=== PATIENT | male | born 1950 | race Hispanic/Latino ===

== ENCOUNTER 2018-09-30 11:58 | Emergency (ER) | payer MEDICARE ==
--- NOTE | 2018-09-30 12:39 | RAD ---
Exam: Lumbar spine 3 views HISTORY: Low back pain. COMPARISON: None FINDINGS: 5 lumbar type bodies. Vertebral body height is maintained. No fracture. No spondylolisthesi s or spondylolysis. Straightening of normal lumbar lordosis likely due to patient position or muscle. Vacuum disc phenomenon at L5-S1 IMPRESSION: Vacuum disc phenomenon at L5-S1. Nonemergent MRI of the lumbar spine is recommended
[2018-09-30] MEDS ORDERED: Dexamethasone 4 mg/ml Vial ONE (13:06)
[2018-09-30] MEDS ORDERED: Ketorolac Tromethamine 60 MG/2 ML VIAL ONE (13:06)
[2018-09-30] MEDS ORDERED: diphenhydrAMINE 25 MG CAP ONE (13:12)
== END 2018-09-30 14:04 | disposition home or self-care (01) ==
LOC: ERS 11:58
DX: M54.5 Low back pain (principal); I10 Essential (primary) hypertension
CPT/HCPCS: 72100; 96372; J1100; J1885; Q0163

== ENCOUNTER 2018-10-11 04:18 | Inpatient (IN) | payer MEDICARE ==
[2018-10-11] MEDS ORDERED: Morphine 4 MG/ML VIAL ONE (05:20)
[2018-10-11] MEDS ORDERED: Ondansetron PF 4 MG/2 ML Vial ONE (05:20)
[2018-10-11] MEDS ORDERED: Aspirin 325 MG TAB ONE (06:34)
[2018-10-11] MEDS ORDERED: Fentanyl 100 MCG/2 ML VIAL ONE ×2 (06:34→10:10)
[2018-10-11] MEDS ORDERED: Ondansetron ODT 4 MG TAB PO PRN (08:09)
[2018-10-11] MEDS ORDERED: Acetaminophen 325 MG TAB PO PRN (08:09)
[2018-10-11] MEDS ORDERED: Insulin Regular 300 UNITS/3 ML VIAL SC PRN (08:09)
[2018-10-11] MEDS ORDERED: Dextrose 5% in Water 1,000 ML IV PRN (08:09)
[2018-10-11] MEDS ORDERED: Acetaminophen 650 MG Suppository PR PRN (08:09)
[2018-10-11] MEDS ORDERED: Dextrose 50% Abboject 50 ML SYRINGE SLOW IVP PRN (08:09)
[2018-10-11] MEDS ORDERED: Senokot S 8.6-50 MG TAB PO PRN (08:09)
--- NOTE | 2018-10-11 08:20 | ULT ---
GALLBLADDER ULTRASOUND: CLINICAL INDICATION: Epigastric pain with nausea and vomiting new onset. FINDINGS: There is prominence of the hepatic volume, greater than 20 cm in length with increased echogenicity. There is thickening of the gallbladder wall with evidence of pericholecystic fluid. No shadowing ch olelithiasis. The bun panner does report a positive Ha's sign. Hypoechoic focus of the central aspect of the right kidney is present which may relate to a parapelvic cyst. The common duct is sharad sured at 4-5 mm, where visualized. IMPRESSION: Sonographic findings of cholecystitis. There is no shadowing cholelithiasis visualized. The common duct is normal in size. Recommend clinical correlation. POS: MADELIN
[2018-10-11 08:41] LABS: ALT (SGPT) 85 U/L (8-55); AST (SGOT) 171 U/L (5-34); Albumin 3.5 g/dL (3.4-4.8); Alkaline Phosphatase 135 U/L (40-150); Anion Gap 12 mmol/L (10-20); BUN (Urea Nitrogen) 13 mg/dL (8.4-25.7); Bilirubin, Total 1.2 mg/dL (0.2-1.2); Calc. Creatinine Clearance 0 mL/min (70-130); Calcium 8.5 mg/dL (7.8-10.44); Carbon Dioxide 26 mmol/L (23-31); Chloride 100 mmol/L (98-107); Estimated GFR-MDRD 69; Glucose 388 mg/dL (80-115); Potassium 4.4 mmol/L (3.5-5.1); Protein, Total 6.5 g/dL (5.8-8.1); Sodium 134 mmol/L (136-145); Triglycerides 352 mg/dL (Less than 150)
[2018-10-11 08:45] LABS: Troponin I Less than 0.010 ng/mL (< 0.028)
[2018-10-11 08:54] LABS: Lipase 2823 U/L (8-78)
[2018-10-11] MEDS ORDERED: Fentanyl 100 MCG/2 ML VIAL SLOW IVP PRN (08:55)
[2018-10-11] MEDS ORDERED: Famotidine 20 MG TAB PO SCH (09:00)
[2018-10-11] MEDS ORDERED: Famotidine/PF 20 mg/2ml Vial SLOW IVP SCH (09:00)
[2018-10-11] MEDS ORDERED: Nitroglycerin 0.4 MG TAB (25 Tab Bottle) PO PRN (09:07)
[2018-10-11] MEDS ORDERED: Famotidine/PF 20 mg/2ml Vial ONE (10:42)
[2018-10-11] MEDS ORDERED: Famotidine 20 MG TAB ONE (10:42)
[2018-10-11] MEDS ORDERED: NPH, Human Insulin Isophane 300 UNIT/3 ML VIAL SC SCH (10:45)
[2018-10-11] MEDS ORDERED: Pantoprazole 40 MG VIAL IVP SCH (10:45)
--- NOTE | 2018-10-11 11:08 | HP ---
PRIMARY CARE PHYSICIAN: None. CHIEF COMPLAINT: Abdominal discomfort. HISTORY OF PRESENT ILLNESS: The patient is a 68-year-old male with no past medical history, presented to [facility] with sudden onset of epigastric discomfort. The pain started around 1 a.m. and was [id number] in intensity. It was constant with waxing and waning. He was diaphoretic along with shortness of breath. The pain was 8 to 10/10. He denies any palpitations, syncope, recent immobilization, or travel. He has not seen a physician for many years. In the emergency room, his initial vital signs showed temperature 98.3, respirations of 17, pulse rate of 88, blood pressure of 156/99 with O2 saturation 96% on room air. His lipase was 3218 with AST of 62, total bilirubin 1.0, alkaline phosphatase 137. He received 12 units of subcu Humulin R, 1 L IV fluid, 325 mg aspirin, and Maalox, and was transferred to this facility. PAST MEDICAL HISTORY: Reviewed with the patient and none. PAST SURGICAL HISTORY: Reviewed with the patient and none. ALLERGIES: THE PATIENT IS ALLERGIC TO IBUPROFEN THAT CAUSES ANAPHYLAXIS. SOCIAL HISTORY: The patient works in [employer]. He denies current use of smoking, alcohol, or drug use. He is a former smoker. FAMILY HISTORY: Positive for diabetes. REVIEW OF SYSTEMS: All other review of systems was reviewed and were found negative. Please note that history was obtained with the help of a roving can tender. The patient is primarily Turkmen-speaking only. OBJECTIVE: VITAL SIGNS: As discussed above. GENERAL: A 68-year-old male in mild distress due to significant abdominal pain. HEENT: Head, atraumatic and normocephalic. Sclerae anicteric. Moist mucous membrane. No oral lesion. NECK: Supple. No JVD appreciated. No carotid bruit. LUNGS: Clear to auscultation bilaterally with diminished air entry at bilateral bases. HEART: S1 and S2 present. Regular rate and rhythm. No rubs or gallops appreciated. ABDOMEN: Soft. There is significant tenderness in the epigastric region in the right upper quadrant. No rebound or guarding. No costovertebral angle tenderness. Bowel sounds are present. EXTREMITIES: No edema or calf tenderness. NEUROLOGIC: Grossly nonfocal. Moves all 4 extremities. PSYCHIATRIC: Normal affect. Alert, awake, and oriented x3. LABORATORY FINDINGS: Repeat lipase was 2823 with amylase of 107.5, triglycerides 352, AST of 171, ALT of 85, total bilirubin of 1.2. Hemoglobin A1c 13, BUN 13, creatinine 1.07. IMAGING STUDIES: Chest x-ray by my review was negative for infiltrate. Abdominal ultrasound showed common bile duct measuring 4 to 5 mm with thickening of the gallbladder wall with evidence of pericholecystic fluid. EKG by my review showed sinus rhythm with premature ventricular complex. IMPRESSION: 1. Acute pancreatitis of unclear etiology. 2. Gallbladder thickening, probably secondary to #1, questionable acute cholecystitis. 3. New-onset diabetes mellitus type 2. 4. Morbid obesity. 5. Chronic kidney disease stage 2. 6. Hyponatremia secondary to hyperglycemia. PLAN: The patient will be monitored on the medical floor. His troponins have been negative. An echocardiogram will be obtained for surgical clearance. The patient is physically active. Denies any shortness of breath on moderate exertion. He will be kept n.p.o. Empiric antibiotics will be added. IV fluids. We will start him on NPH 10 units b.i.d. with moderate sliding scale. IV narcotics for pain control. I discussed the case with Gastroenterology and General surgery on-call. Dietitian will be consulted. Walking program. DVT prophylaxis with Lovenox. Plan of care was discussed with the patient and the family in detail. They stated understanding. We will check lipase, amylase, as well as LFTs in a.m. Job ID: [id number]
[2018-10-11] MEDS: Sodium Chloride 0.9% 1,000 ML IV SCH ×3 (11:21→20:18)
[2018-10-11] MEDS: Piperacillin/Tazobactam 3.375 GM in Sodium Chloride 0.9% 100 ML IVPB SCH ×2 (11:21→17:10)
[2018-10-11] MEDS ORDERED: traMADol HCl 50 MG TAB PO PRN (11:27)
[2018-10-11 11:42] VITALS: BMI 39.5
[2018-10-11] MEDS ORDERED: Pantoprazole 40 MG VIAL ONE (11:47)
[2018-10-11] MEDS ORDERED: Fentanyl 100 MCG/2 ML VIAL SLOW IVP SCH (12:30)
[2018-10-11] MEDS ORDERED: Prevnar 13-Val Conj/PF 0.5 ML SYRINGE IM ONE (14:45)
[2018-10-11] MEDS ORDERED: hydrALAZINE 20 MG/ML VIAL SLOW IVP PRN (15:26)
--- NOTE | 2018-10-11 16:17 | CON ---
DATE OF CONSULTATION: 10/11/2018 REQUESTING PHYSICIAN: Dr. Cholo Wilkerson. HISTORY OF PRESENT ILLNESS: This is a 68-year-old man, who presented to the emergency department today. The patient reported insidious onset epigastric abdominal pain, which started approximately 0100 hours, for which the patient was seen in an emergency department. He was transferred to [facility] for upper level workup and care of pancreatitis. The patient is awake and alert at the time of my evaluation. He reports onset of 9/10 abdominal pain, which he described as sharp without any radiation. He had diarrhea 2 days ago. Currently, he denies any abdominal distention or flatulence. He denies any fevers or chills. He denies any hematochezia or melena. The patient reports no prior abdominal pain as far as he can remember. PAST MEDICAL HISTORY: He denies any previous medical problems as he has not been seeing any physicians. SURGICAL HISTORY: The patient has had no previous surgeries. SOCIAL HISTORY: He is employed in building maintenance. He denies any cigarette smoking or illicit drug abuse. He, however, admits to very rare occasions of ethanol intake in moderate amounts. He has not had any alcohol over 2 weeks. FAMILY HISTORY: Noncontributory for this patient's age. PREHOSPITALIZATION MEDICATIONS: None. ALLERGIES: TO IBUPROFEN. REVIEW OF SYSTEMS: A 10-point review of systems essentially unremarkable except as stated in past medical history and chief complaint. PHYSICAL EXAMINATION: GENERAL: A 68-year-old normally developed man, who is otherwise coherent and interactive and appears stated age. The patient is alert and oriented x3. Appears to be in no acute distress at the time of my evaluation. VITAL SIGNS: Blood pressure 156/98, pulse is 81, respiratory rate is 18, temperature 98.4 degrees Fahrenheit, and oxygen saturation is 93% on room air. HEENT: Normocephalic and atraumatic. Pupils are equal, round, and reactive to light and accommodation. Extraocular muscles are intact bilaterally. No scleral icterus present. HEART: Regular rate and rhythm. No murmurs or gallops auscultated. LUNGS: Clear to auscultation bilaterally. Breathing regular and nonlabored. ABDOMEN: Soft and moderately distended. He has epigastric abdominal tenderness to palpation. He has no rebound tenderness present. Liver and spleen are nonpalpable below costal margins. EXTREMITIES: 2+ radial and pedal pulses bilaterally. No ankle edema is present. NEUROLOGIC: No focal deficits present. LABORATORY FINDINGS: Today include CBC with 8900 white blood cells, hemoglobin and hematocrit 15.1 and 44.1 respectively, and platelet count is 192,000. Metabolic profile; sodium 134, potassium 4.4, chloride is 100, bicarb is 26, BUN 13, creatinine is 1.07, and glucose is 388. Hemoglobin A1c is 13%. Total bilirubin is 1.2, AST and ALT are 171 and 85 respectively, and alkaline phosphatase is also normal at 135 international units/L. Serum lipase is elevated at 2823. I have personally reviewed the abdominal ultrasound, which was obtained this morning, and this is significant for a distended gallbladder with gallbladder wall thickening and pericholecystic fluid present. I do not see any intraluminal gallstones. Common bile duct is normal in diameter for this patient's age at 5 mm. IMPRESSIONS: 1. Acute cholecystitis. 2. Acute pancreatitis in the absence of alcoholism. This is likely to be gallstone pancreatitis. 3. New onset type 2 diabetes mellitus. RECOMMENDATIONS: 1. Bowel rest and IV hydration with appropriate antibiotic therapy. There is no acute surgical indication for this patient at this time. 2. We will continue with serial physical examination and consider laparoscopic cholecystectomy once the pancreatitis has resolved. 3. Above findings and recommendation has been discussed with the patient and his family at bedside. 4. I have also advised the patient of the risks and benefits of surgery should be undertaken. 5. Surgical risks include, but not limited to, bleeding, infection, injury to bile duct or surrounding structures. 6. The patient and his family have indicated their understanding information provided. 7. Answered their questions. Thank you again, Dr. Wilkerson, for allowing me the opportunity to participate in the care of this patient. Job ID: [id number]
[2018-10-11] MEDS: Insulin Regular 300 UNITS/3 ML VIAL SC PRN ×2 (17:25→20:50)
[2018-10-11] MEDS: Metoprolol Tartrate 25 MG TAB PO SCH (19:50)
[2018-10-11] MEDS: Enoxaparin Sodium 40 MG/0.4 ML SYRINGE SC SCH (19:51)
[2018-10-11] MEDS: NPH, Human Insulin Isophane 300 UNIT/3 ML VIAL SC SCH (20:51)
[2018-10-12] MEDS: Sodium Chloride 0.9% 1,000 ML IV SCH ×3 (03:48→17:37)
[2018-10-12] MEDS: Piperacillin/Tazobactam 3.375 GM in Sodium Chloride 0.9% 100 ML IVPB SCH ×5 (03:48→21:22)
[2018-10-12 06:16] LABS: #Eosinphils 0.1 thou/uL (0.0-0.7); #Lymphocytes 1.6 thou/uL (1.20-3.40); #Monocytes 0.7 thou/uL (0.11-0.59); #Neutrophils 9.4 thou/uL (1.40-6.50); %Basophils 0.3 % (0.0-1.0); %Eosinophils 0.6 % (0.0-10.0); %Lymphocytes 13.4 % (21.0-51.0); %Neutrophils 79.7 % (42.0-75.0); Hemoglobin 14.4 g/dL (14.0-18.0); Mean Corpuscular HGB CONC 32.2 g/dL (32.0-36.0); Mean Corpuscular Volume 93.2 fL (78.0-98.0); Mean Platelet Volume 9.4 fL (7.4-10.4); Platelet Count 166 thou/uL (130-400); RBC Distribution Width 11.4 % (11.5-14.5); Red Blood Cell (RBC) Count 4.79 mill/uL (4.70-6.10); White Blood Cell (WBC) Count 11.8 thou/uL (4.8-10.8)
[2018-10-12 06:37] LABS: Phosphorus 2.7 mg/dL (2.3-4.7)
[2018-10-12 06:42] LABS: ALT (SGPT) 94 U/L (8-55); AST (SGOT) 65 U/L (5-34); Albumin 3.1 g/dL (3.4-4.8); Alkaline Phosphatase 135 U/L (40-150); Anion Gap 7 mmol/L (10-20); BUN (Urea Nitrogen) 11 mg/dL (8.4-25.7); Bilirubin, Total 1.3 mg/dL (0.2-1.2); Calc. Creatinine Clearance 112 mL/min (70-130); Calcium 8.6 mg/dL (7.8-10.44); Carbon Dioxide 31 mmol/L (23-31); Chloride 105 mmol/L (98-107); Estimated GFR-MDRD 70; Glucose 243 mg/dL (80-115); Lipase 630 U/L (8-78); Magnesium 1.6 mg/dL (1.6-2.6); Potassium 4.3 mmol/L (3.5-5.1); Protein, Total 6.1 g/dL (5.8-8.1); Sodium 139 mmol/L (136-145)
[2018-10-12] MEDS ORDERED: Morphine 2 MG/ML SYRINGE SLOW IVP PRN (08:08)
[2018-10-12] MEDS: Metoprolol Tartrate 25 MG TAB PO SCH ×2 (08:37→21:23)
[2018-10-12] MEDS: NPH, Human Insulin Isophane 300 UNIT/3 ML VIAL SC SCH ×2 (08:39→21:37)
--- NOTE | 2018-10-12 08:43 | CON ---
DATE OF CONSULTATION: 10/11/2018 REASON FOR CONSULTATION: Abdominal pain, nausea, vomiting and evidence of acute pancreatitis. HISTORY OF PRESENT ILLNESS: Mr. Scott Duran is a very pleasant 68-year-old Latin-Ivorian male, hospitalized with abdominal pain, nausea, and vomiting. The patient was seen in the hospital with his over the weekend and his actually got discharged yesterday. His has heart failure, chronic kidney disease, etc. She was sent home actually yesterday from the hospital. The patient never had any medical problems. He had not seen a doctor for many years. He came to the ER a week ago because of arthritis and was seen in the ER. Prescription was given for some pain medication. The patient does not drink any alcohol except once in a while. He had a beer on October 05. He drinks maybe one or two beers occasionally. He developed severe abdominal pain with nausea and vomiting. The pain was over the epigastric area and going to the back. He also had nausea and vomiting. No fever or chills. No similar episodes in the past. The patient came to the ER and was found to have evidence of pancreatitis and hospitalized. Serum lipase was around 3100. Liver function tests are normal. Abdominal sonogram shows no gallstones, but there is evidence of cholecystitis. The common bile duct is normal. Also the liver function tests are normal. At the present time, he is n.p.o. and is on IV pain medications and also IV fluids. The patient does not speak any Malaysian and his sister was in the room and she was able to talk to him and gives most of the history. There is no other relevant history. ALLERGIES: NONE. SOCIAL HISTORY: The patient is . Does not smoke, but drinks beer once in a while. Drank one beer on October 05. MEDICAL ILLNESSES: No major medical illness except pain in the knee joints. SURGERIES: None. FAMILY HISTORY: Family history of diabetes and also sister had gallstones. No family history of cancer. MEDICATIONS AT HOME: None. SYSTEM REVIEW: HEAD: No chronic headache. No dizziness. EYES: No diplopia. No impaired vision. EARS: No ear pain. No ear discharge. NOSE: No nose bleeding. THROAT: No sore throat or any dysphagia. NECK: No neck stiffness or pain. No limitation of movement. LUNGS: No chronic coughing. No hemoptysis, dyspnea. CARDIOVASCULAR SYSTEM: No chest pain. No palpitation. No dyspnea, orthopnea, or PND. GENITOURINARY: No dysuria, hematuria, or nocturia. MUSCULOSKELETAL: History of bilateral knee pain, arthralgias. NEUROLOGIC: Unremarkable. ENDOCRINE: Unremarkable. PSYCHIATRY: Unremarkable. PHYSICAL EXAMINATION: GENERAL: The patient is obese, appears in moderate discomfort. He received fentanyl IV just before I walked in and in spite of fentanyl, he still feels to have pain this morning. VITAL SIGNS: He is afebrile. Pulse is 88, blood pressure is HEENT: Conjunctivae clear. NECK: Supple. No adenitis or thyromegaly noted. CARDIOVASCULAR SYSTEM: First and second heart sounds normal. LUNGS: Clear to auscultation. ABDOMEN: Soft and nondistended. Abdomen is tender over the epigastric area and periumbilical area. Slightly tender over the right upper quadrant. There is no rebound or guarding. Bowel sounds active. EXTREMITIES: Reveal no edema. LABORATORY DATA: Shows evidence of pancreatitis and serum lipase of 31,000. Liver function tests normal. Chem-7 is normal. Abdominal sonogram shows evidence of cholecystitis with thickened gallbladder wall. No gallstones. The common bile duct is normal caliber. His blood sugar is more than 400, which in new onset as he has had no history of diabetes. ASSESSMENT: 1. Acute pancreatitis, most likely biliary. 2. Hyperglycemia. The patient could have borderline diabetes made worse with acute pancreatitis . RECOMMENDATIONS: 1. N.p.o. . 2. IV fluids. 3. Surgical consult. 4. Follow up labs. Job ID: [id number]
[2018-10-12] MEDS ORDERED: Pantoprazole 40 MG VIAL IVP SCH (09:00)
[2018-10-12] MEDS ORDERED: Fentanyl 100 MCG/2 ML VIAL ONE ×3 (09:53→13:12)
[2018-10-12] MEDS ORDERED: Iothalamate Meglumine 60% 50 ML VIAL FS ONE (10:05)
[2018-10-12] MEDS ORDERED: Bupivacaine/Epinephrine 0.25% 30 ML VIAL ONE (10:05)
[2018-10-12] MEDS ORDERED: Rocuronium Bromide 10 MG/ML (10ML VIAL) ONE (13:16)
[2018-10-12] MEDS ORDERED: Metoclopramide HCl 10 MG/2 ML VIAL ONE (13:16)
[2018-10-12] MEDS ORDERED: Ondansetron PF 4 MG/2 ML Vial ONE (13:16)
[2018-10-12] MEDS ORDERED: PROPOFOL 200 MG/20 ML VIAL ONE (13:16)
[2018-10-12] MEDS ORDERED: traMADol HCl 50 MG TAB PO PRN (13:23)
[2018-10-12] MEDS ORDERED: Morphine 4 MG/ML VIAL SLOW IVP PRN (13:23)
--- NOTE | 2018-10-12 13:32 | OP ---
DATE OF PROCEDURE: 10/12/2018 PREOPERATIVE DIAGNOSES: 1. Acute cholecystitis and cholelithiasis. 2. Acute gallstone pancreatitis, resolved. POSTOPERATIVE DIAGNOSES: 1. Acute cholecystitis and cholelithiasis. 2. Acute gallstone pancreatitis, resolved. OPERATIONS PERFORMED: Laparoscopic cholecystectomy with intraoperative cholangiogram. ANESTHESIA: General endotracheal. ESTIMATED BLOOD LOSS: 50 mL. FLUIDS GIVEN: 1400 mL crystalloids. COUNTS: Sponge and instrument counts were verified as correct x2. COMPLICATIONS: None apparent at the time of operation. INDICATIONS FOR OPERATION: A 68-year-old man, presented with insidious onset epigastric abdominal pain. Clinical radiographic examination was consistent with acute cholecystitis with cholelithiasis and acute gallstone pancreatitis. The patient was placed on bowel rest with IV hydration and antibiotics. This morning, he is examined, reporting no abdominal pain. Serum lipase is normalizing. Remainder of his hemodynamics were within normal limits. The patient was brought to the operating room for laparoscopic cholecystectomy with intraoperative cholangiogram. Findings are consistent with a markedly dilated gallbladder in the usual anatomic location completely encased by omental adhesions. Cholangiogram was also performed, which reveals normal ductal anatomy, no filling defects present. DESCRIPTION OF PROCEDURE: Informed consent was obtained from the patient, he was brought to the operating room and placed in supine position. Following general anesthesia, abdomen was sterilely prepped and draped in usual fashion. The skin below the umbilicus was infiltrated with 0.25% Marcaine with epinephrine. A small curvilinear infraumbilical incision was made using 11 scalpel. Umbilical stalk grasped with Ortega and elevated. Veress needle was inserted through the incision and placed in the peritoneal cavity through which the abdomen was insufflated with 3.5 L of CO2 gas. Intraabdominal pressure noted at 0 mmHg. Following abdominal insufflation, Veress needle was removed and a 5 mm trocar introduced using a Visiport under laparoscopy. Laparoscopy confirmed proper placement of the port, no injuries to underlying structures. Additional laparoscopy reveals right upper quadrant completely encased by omental adhesions present. A 12 mm epigastric and two 5 mm right lateral subcostal ports were placed after the overlying skin were infiltrated with 0.25% Marcaine with epinephrine, appropriate incision was made. The patient was placed in the reverse Trendelenburg position, rotated to his left. I introduced a [place] dissector with cautery using this to take down omental adhesions to expose the markedly dilated gallbladder. Prestige grasper introduced through the right lateral subcostal port grasping the fundus of the gallbladder, which was elevated cephalad. A second Prestige grasper introduced through the right medial subcostal port grasping the Elissa pouch, which was retracted laterally. The cystic duct was carefully dissected free from surrounding structures at the triangle of Calot. The cystic artery was also carefully dissected free from surrounding structures critical. The cystic artery divided between clips, applying 2 clips proximally and 1 clip at the junction of the cystic artery and gallbladder. I then applied one clip at the junction of the cystic duct and gallbladder. Cystotomy was made using the EndoShear proximal to this securing clip. I introduced a cholangiocatheter in the right upper quadrant, flushed first with saline and catheter was then introduced into the cystic duct and lumen securing this with a single clip. We flushed easily with saline and under fluoroscopy, cholangiogram was completed using 10 mL of Conray contrast. Normal ductal anatomy was noted. No filling defects present. Total fluoroscopy time was 15 seconds. Following cholangiogram, the securing clip was removed and the catheter was removed from the peritoneal cavity. The cystic duct was divided between clips, applied two clips proximally. The gallbladder itself was removed from the liver bed and delivered off the abdominal cavity using an EndoCatch. The gallbladder fossa was inspected. There was venous oozing present. Hemostasis readily achieved using 1 x 2 inch piece of Fibrillar. Finding no other pathology, laparoscopy was terminated. Fascia of the epigastric port was closed using 0 Vicryl suture and Endoclosure device on the laparoscopy. The abdomen was desufflated. All ports and instruments removed and accounted for. The patient tolerated the operation without any apparent complication and was returned to recovery room in satisfactory condition. Job ID: [id number]
[2018-10-12] MEDS: Saccharomyces boulardii 250 MG CAP PO SCH (15:06)
--- NOTE | 2018-10-12 15:38 | RAD ---
EXAM: INTRAOPERATIVE CHOLANGIOGRAM: 10/12/18 HISTORY: Right upper quadrant pain, elevated lipase, postop cholecystectomy. Two portable fluoroscopic spot films are presented for interpretation. There is injection of contrast into the cystic duct remnant with filling of the common bile duct without evidence for significant n arrowing or intraductal calculus. There is moderate reflux into the pancreatic duct. IMPRESSION: Unremarkable intraoperative cholangiogram. No evidence for retained stone or stricture. POS: C
--- NOTE | 2018-10-12 17:39 | PRG ---
DATE OF SERVICE: 10/12/2018 SUBJECTIVE: A 68-year-old male with no past medical history, presented to emergency room with abdominal discomfort. His workup was consistent with acute cholecystitis with acute gallstone pancreatitis. His abdominal pain is somewhat improved overnight. He is currently n.p.o. He denies any fever or chills. He has some nausea, however, denies any vomiting. CURRENT MEDICATIONS: Reviewed. The patient is on IV narcotics for pain control. REVIEW OF SYSTEMS: All other review of systems was reviewed and were found negative. OBJECTIVE: VITAL SIGNS: Temperature 98.7, respirations 18, blood pressure 128/77, pulse rate of 78, and O2 saturation 95% on 2 L nasal cannula. GENERAL: A 68-year-old male, in no significant distress at rest. LUNGS: Clear to auscultation bilaterally with diminished air entry at bases. No wheezing, rales, or rhonchi. HEART: S1 and S2 present. Regular rate and rhythm. No rubs or gallops. ABDOMEN: Soft. There is tenderness in the epigastric region and right upper quadrant. No rebound or guarding. No costovertebral angle tenderness. EXTREMITIES: No edema or calf tenderness. NEUROLOGIC: Grossly nonfocal. PSYCHIATRIC: Alert, awake, and oriented x3. Normal affect. LABORATORY FINDINGS: Lipase 630, amylase 596, total bilirubin 1.3, AST of 65, ALT 94, alkaline phosphatase 135, phosphorus to 2.7. Right upper quadrant ultrasound showed findings consistent with cholecystitis. EKG by my review showed sinus rhythm with premature ventricular complexes. IMPRESSION: 1. Acute gallstone pancreatitis. 2. Acute cholecystitis. 3. New onset diabetes mellitus type 2. 4. Obesity with a BMI of 39.6. 5. Chronic kidney disease stage 2. 6. Hyponatremia secondary to hyperglycemia. 7. Abnormal LFTs secondary to #1. PLAN: The patient will undergo laparoscopic cholecystectomy today. We will continue Zosyn for now. We will continue moderate sliding scale with NPH. We will add glipizide in a.m. We will reduce IV fluids later today if tolerating p.o. We will recheck lipase as well as liver enzymes in a.m. Dietitian has been consulted for new diabetic. Plan was discussed with the patient. He stated understanding. Job ID: [id number]
[2018-10-12] MEDS: Insulin Regular 300 UNITS/3 ML VIAL SC PRN (17:41)
[2018-10-12] MEDS: Acetaminophen 325 MG TAB PO SCH ×2 (17:46→23:44)
[2018-10-12] MEDS: Ondansetron PF 4 MG/2 ML Vial IVP PRN (20:25)
[2018-10-12] MEDS: Enoxaparin Sodium 40 MG/0.4 ML SYRINGE SC SCH (20:42)
[2018-10-13] MEDS: Acetaminophen 325 MG TAB PO SCH ×3 (04:19→17:00)
[2018-10-13] MEDS: Sodium Chloride 0.9% 1,000 ML IV SCH ×3 (04:21→17:02)
[2018-10-13] MEDS: Piperacillin/Tazobactam 3.375 GM in Sodium Chloride 0.9% 100 ML IVPB SCH ×2 (04:22→12:04)
[2018-10-13] MEDS: Insulin Regular 300 UNITS/3 ML VIAL SC PRN ×3 (05:32→18:15)
[2018-10-13 05:45] LABS: #Basophils 0.2 thou/uL (0.0-0.2); #Lymphocytes 1.3 thou/uL (1.20-3.40); #Monocytes 0.7 thou/uL (0.11-0.59); #Neutrophils 13.1 thou/uL (1.40-6.50); %Basophils 1.6 % (0.0-1.0); %Eosinophils 0.1 % (0.0-10.0); %Lymphocytes 8.5 % (21.0-51.0); %Monocytes 4.6 % (0.0-10.0); %Neutrophils 85.2 % (42.0-75.0); Hemoglobin 13.7 g/dL (14.0-18.0); Mean Corpuscular HGB CONC 32.3 g/dL (32.0-36.0); Mean Corpuscular Hemoglobin 30.5 pg (27.0-31.0); Mean Corpuscular Volume 94.3 fL (78.0-98.0); Mean Platelet Volume 9.8 fL (7.4-10.4); Platelet Count 166 thou/uL (130-400); RBC Distribution Width 11.4 % (11.5-14.5); Red Blood Cell (RBC) Count 4.49 mill/uL (4.70-6.10); White Blood Cell (WBC) Count 15.4 thou/uL (4.8-10.8)
[2018-10-13 06:12] LABS: ALT (SGPT) 57 U/L (8-55); AST (SGOT) 24 U/L (5-34); Albumin 2.9 g/dL (3.4-4.8); Alkaline Phosphatase 106 U/L (40-150); Anion Gap 12 mmol/L (10-20); BUN (Urea Nitrogen) 14 mg/dL (8.4-25.7); Bilirubin, Direct 0.6 mg/dL (0.1-0.3); Bilirubin, Total 1.4 mg/dL (0.2-1.2); Calc. Creatinine Clearance 118 mL/min (70-130); Calcium 7.9 mg/dL (7.8-10.44); Carbon Dioxide 23 mmol/L (23-31); Chloride 105 mmol/L (98-107); Estimated GFR-MDRD 74; Glucose 285 mg/dL (80-115); Lipase 180 U/L (8-78); Magnesium 1.4 mg/dL (1.6-2.6); Phosphorus 3.3 mg/dL (2.3-4.7); Potassium 3.6 mmol/L (3.5-5.1); Protein, Total 5.7 g/dL (5.8-8.1); Sodium 136 mmol/L (136-145)
[2018-10-13] MEDS: Saccharomyces boulardii 250 MG CAP PO SCH (08:07)
[2018-10-13] MEDS: Metoprolol Tartrate 25 MG TAB PO SCH ×2 (08:07→20:40)
[2018-10-13] MEDS: glipiZIDE 5 MG TAB PO SCH ×2 (08:08→17:00)
[2018-10-13] MEDS: NPH, Human Insulin Isophane 300 UNIT/3 ML VIAL SC SCH ×2 (08:09→17:00)
[2018-10-13] MEDS ORDERED: Magnesium Sulfate 4 GM in Sodium Chloride 0.9% 250 ML 250 ML IVPB SCH (08:30)
--- NOTE | 2018-10-13 12:20 | PRG ---
DATE OF SERVICE: 10/13/2018 SUBJECTIVE: Mr. Duran is 68-year-old man, postop day #1, status post laparoscopic cholecystectomy with normal intraoperative cholangiogram. He reports adequate pain control this morning. He is tolerating clear liquid diet. Urinary output is adequate. OBJECTIVE: VITAL SIGNS: Today includes blood pressure 148/81, pulse is 77, respiratory rate is 18, temperature is 98.6 degrees Fahrenheit, and oxygen saturation is 91% on room air. HEENT: Pupils are equal, round, and reactive to light and accommodation. He has no scleral icterus present. NECK: He has no jugular venous distention noted. HEART: Reveals regular rate and rhythm. No murmurs or gallops auscultated. LUNGS: Clear to auscultation bilaterally. Breathing, regular and nonlabored. ABDOMEN: Soft with incisional tenderness to palpation. All four incisions are intact, clean, and dry. He has no peritoneal signs on examination. NEUROLOGIC: Reveals no focal deficits present. LABORATORY FINDINGS: Today includes a CBC with 15,400 white blood cells and hemoglobin and hematocrit 13.7 and 42.4 respectively. Platelet count is 166,000. Metabolic profile; sodium is 136, potassium is 3.6, chloride is 105, bicarb is 23, BUN is 14, creatinine is 1.0, glucose is 285, magnesium is 1.4, total bilirubin is 1.4, and AST and ALT are 24 and 57 respectively. Serum lipase is 180 today, down from 630 yesterday. IMPRESSION: 1. Postop day #1 status post laparoscopic cholecystectomy with normal intraoperative cholangiogram. 2. Resolving acute pancreatitis. PLAN: Advance diet and activity. The patient may be discharged home from general surgical standpoint and this will be at the discretion of Primary Service. The patient will see me in the Surgery Clinic in 2 weeks. Job ID: [id number]
[2018-10-13] MEDS ORDERED: Sodium Chloride 0.9% 1,000 ML IV SCH (16:28)
--- NOTE | 2018-10-13 16:53 | PRG ---
DATE OF SERVICE: 10/13/2018 SUBJECTIVE: A 68-year-old male with no past medical history, presented to emergency room with sudden onset of abdominal discomfort. His workup was consistent with acute gallstone pancreatitis with acute cholecystitis. He was kept n.p.o. and was started on IV fluids on admission. Yesterday, he underwent laparoscopic cholecystectomy by Dr. Pepe. His abdominal pain has significantly improved. He denies any fever, chills, or nausea at this time. REVIEW OF SYSTEMS: As discussed above. CURRENT MEDICATIONS: Reviewed. The patient is on NPH insulin 15 units b.i.d. with IV fluids, Zosyn as well as glipizide. OBJECTIVE: VITAL SIGNS: Temperature 98.4, pulse of 94, respirations of 18, and blood pressure 133/77, and O2 saturation 93% on room air. GENERAL: A 68-year-old male, in no apparent distress at rest. LUNGS: Clear to auscultation bilaterally. HEART: S1 and S2 present, regular. ABDOMEN: Soft. Mild right upper quadrant tenderness. No rebound or guarding. Bowel sounds present. EXTREMITIES: No edema or calf tenderness. LABORATORY FINDINGS: Magnesium 1.4. Total bilirubin 1.4 with direct bilirubin 0.6, ALT of 57. Lipase is down to 180. WBC count 15.4 with 85% neutrophils. Blood cultures negative. IMPRESSION: 1. Acute gallstone pancreatitis with acute cholecystitis. The patient underwent laparoscopic cholecystectomy on 10/12. 2. New onset diabetes mellitus type 2. His A1c was 13.0. 3. Hypomagnesemia. Magnesium 1.4 today. 4. Chronic kidney disease, stage 2. 5. Obesity with a BMI of 39.6. 6. Hyponatremia secondary to hyperglycemia. 7. Abnormal LFTs secondary to #1. PLAN: The patient has been started on diabetic diet. We will educate him how to self administer insulin injection. The patient was advised to ambulate. We will check labs in a.m. We will reduce IV fluid to 50 mL an hour. DISPOSITION: 1. Probably in 24 hours if stable. We will discontinue IV Zosyn. Repeat CBC in a.m. 2. We will change Accu-Chek to a.c. and at bedtime. 3. The patient was educated on diabetes. He also had dietitian consulted. Job ID: [id number]
[2018-10-13] MEDS: Ondansetron PF 4 MG/2 ML Vial IVP PRN (18:50)
[2018-10-13] MEDS: Enoxaparin Sodium 40 MG/0.4 ML SYRINGE SC SCH (20:39)
[2018-10-13] MEDS: traMADol HCl 50 MG TAB PO PRN (20:44)
[2018-10-14] MEDS: Acetaminophen 325 MG TAB PO SCH ×4 (00:12→16:49)
[2018-10-14 05:55] LABS: #Eosinphils 0.3 thou/uL (0.0-0.7); #Lymphocytes 2.2 thou/uL (1.20-3.40); #Monocytes 0.7 thou/uL (0.11-0.59); #Neutrophils 10.4 thou/uL (1.40-6.50); %Basophils 0.2 % (0.0-1.0); %Eosinophils 2.4 % (0.0-10.0); %Lymphocytes 15.8 % (21.0-51.0); %Monocytes 5.2 % (0.0-10.0); %Neutrophils 76.3 % (42.0-75.0); Hemoglobin 13.1 g/dL (14.0-18.0); Mean Corpuscular HGB CONC 31.1 g/dL (32.0-36.0); Mean Corpuscular Hemoglobin 29.4 pg (27.0-31.0); Mean Corpuscular Volume 94.4 fL (78.0-98.0); Mean Platelet Volume 9.2 fL (7.4-10.4); Platelet Count 170 thou/uL (130-400); RBC Distribution Width 11.2 % (11.5-14.5); Red Blood Cell (RBC) Count 4.47 mill/uL (4.70-6.10); White Blood Cell (WBC) Count 13.6 thou/uL (4.8-10.8)
[2018-10-14 06:19] LABS: Phosphorus 2.2 mg/dL (2.3-4.7)
[2018-10-14 06:20] LABS: ALT (SGPT) 36 U/L (8-55); AST (SGOT) 15 U/L (5-34); Albumin 2.7 g/dL (3.4-4.8); Alkaline Phosphatase 86 U/L (40-150); Anion Gap 10 mmol/L (10-20); BUN (Urea Nitrogen) 12 mg/dL (8.4-25.7); Bilirubin, Total 0.8 mg/dL (0.2-1.2); Calc. Creatinine Clearance 133 mL/min (70-130); Calcium 8.2 mg/dL (7.8-10.44); Carbon Dioxide 26 mmol/L (23-31); Chloride 104 mmol/L (98-107); Estimated GFR-MDRD 85; Globulin 3.1 g/dL (2.4-3.5); Glucose 143 mg/dL (80-115); Lipase 101 U/L (8-78); Magnesium 1.9 mg/dL (1.6-2.6); Potassium 3.4 mmol/L (3.5-5.1); Protein, Total 5.8 g/dL (5.8-8.1); Sodium 137 mmol/L (136-145)
[2018-10-14] MEDS: traMADol HCl 50 MG TAB PO PRN ×2 (08:32→20:22)
[2018-10-14] MEDS: Metoprolol Tartrate 25 MG TAB PO SCH ×2 (08:33→20:17)
[2018-10-14] MEDS: Saccharomyces boulardii 250 MG CAP PO SCH (08:33)
[2018-10-14] MEDS: glipiZIDE 5 MG TAB PO SCH ×2 (08:33→16:14)
[2018-10-14] MEDS: NPH, Human Insulin Isophane 300 UNIT/3 ML VIAL SC SCH ×2 (08:35→16:16)
[2018-10-14] MEDS: Insulin Regular 300 UNITS/3 ML VIAL SC PRN ×2 (12:07→16:50)
[2018-10-14] MEDS: Sodium Chloride 0.9% 1,000 ML IV SCH (12:08)
--- NOTE | 2018-10-14 12:15 | EKG ---
Test Reason : Blood Pressure : / mmHG Vent. Rate : 081 BPM Atrial Rate : 081 BPM P-R Int : 118 ms QRS Dur : 090 ms QT Int : 378 ms P-R-T Axes : 020 -11 024 degrees QTc Int : 439 ms Sinus rhythm with occasional Premature ventricular complexes and Premature atrial complexes Nonspecific ST abnormality Abnormal ECG Confirmed by JOSIAH LACY ([id number]), makeup editor ADELINE ARELLANO ([id number]) on 10/14/2018 12:14:39 PM Referred By: Confirmed By:JOSIAH LACY
--- NOTE | 2018-10-14 14:52 | PDOC.PN ---
- Subjective Encounter Start Date: 10/14/18 (f/u pancreatitis) Encounter Start Time: 14:48 Subjective: Pt c/o feeling 'a little sore', denies any cp/sob - Objective Resuscitation Status - Order Detail: 10/11/18 08:09 Resuscitation Status Routine Resuscitation Status: FULL: Full Resuscitation Vital Signs & Weight: Vital Signs (12 hours) Temp Pulse Resp BP BP Pulse Ox 10/14/18 12:00 98.0 F 78 18 130/78 94 L 10/14/18 08:25 92 L 10/14/18 07:43 98.3 F 85 18 154/82 H 92 L 10/14/18 05:00 98.6 F 88 19 116/75 92 L 10/14/18 04:00 98.4 F 85 18 136/81 91 L Weight Weight 260 lb 2.327 oz I&O: 10/13/18 10/14/18 10/15/18 06:59 06:59 06:59 Intake Total 2180 2600 Balance 2180 2600 Result Diagrams: 10/14/18 05:48 10/14/18 05:48 Additional Labs: Accuchecks 10/14/18 10/14/18 10/13/18 11:22 04:52 20:14 POC Glucose 186 H 137 H 196 H 10/13/18 16:52 POC Glucose 201 H Phys Exam - Physical Examination Constitutional: NAD Respiratory: no wheezing, no rhonchi right basilar rales Cardiovascular: RRR, no significant murmur Gastrointestinal: soft, non-tender, positive bowel sounds Musculoskeletal: no edema in LE bilateral Neurological: non-focal, moves all 4 limbs Psychiatric: normal affect Dx/Plan (1) Pancreatitis Code(s): K85.90 - ACUTE PANCREATITIS WITHOUT NECROSIS OR INFECTION, UNSP Status: Acute (2) Gallstone pancreatitis Code(s): K85.10 - BILIARY ACUTE PANCREATITIS WITHOUT NECROSIS OR INFECTION Status: Acute (3) Hypokalemia Code(s): E87.6 - HYPOKALEMIA Status: Acute (4) Diabetes mellitus Code(s): E11.9 - TYPE 2 DIABETES MELLITUS WITHOUT COMPLICATIONS Status: Chronic Qualifiers: Diabetes mellitus type: type 2 (5) Anemia Code(s): D64.9 - ANEMIA, UNSPECIFIED Status: Acute (6) Volume overload Code(s): E87.70 - FLUID OVERLOAD, UNSPECIFIED Status: Acute (7) Hypophosphatemia Code(s): E83.39 - OTHER DISORDERS OF PHOSPHORUS METABOLISM Status: Acute - Plan * Pancreatitis - * tolerating a diet * s/p jasvir * abx were d/c * volume overload by exam - 1 dose of lasix * replace potassium and phosphate - recheck in AM * ambulation, incentive spirometer * * RN teaching for glucometer and insulin administration. Pt will need to be discharged with insulin provided he can arrange a Primary Care Physician for monitoring. * * dvt prophy - lovenox * gi prophy - not indicated * code status full * * anticipate d/c in AM if pt doing well * d/w pt need for outpatient physician for f/u
[2018-10-14] MEDS ORDERED: Furosemide 20 MG/2 ML VIAL SLOW IVP SCH (15:00)
[2018-10-14] MEDS ORDERED: Potassium Chloride 20 MEQ TAB PO SCH (15:00)
[2018-10-14] MEDS: K-Phos Neutral 250 MG TAB PO SCH (16:50)
[2018-10-14] MEDS: Enoxaparin Sodium 40 MG/0.4 ML SYRINGE SC SCH (20:16)
[2018-10-15] MEDS: Acetaminophen 325 MG TAB PO SCH ×5 (00:13→22:54)
[2018-10-15 06:26] LABS: #Eosinphils 0.4 thou/uL (0.0-0.7); #Lymphocytes 2.3 thou/uL (1.20-3.40); #Monocytes 0.6 thou/uL (0.11-0.59); #Neutrophils 8.8 thou/uL (1.40-6.50); %Basophils 0.1 % (0.0-1.0); %Lymphocytes 18.8 % (21.0-51.0); %Monocytes 5.1 % (0.0-10.0); %Neutrophils 72.9 % (42.0-75.0); Hemoglobin 13.6 g/dL (14.0-18.0); Mean Corpuscular HGB CONC 32.4 g/dL (32.0-36.0); Mean Corpuscular Hemoglobin 30.3 pg (27.0-31.0); Mean Corpuscular Volume 93.6 fL (78.0-98.0); Mean Platelet Volume 9.7 fL (7.4-10.4); Platelet Count 193 thou/uL (130-400); RBC Distribution Width 11.3 % (11.5-14.5); Red Blood Cell (RBC) Count 4.49 mill/uL (4.70-6.10)
[2018-10-15 06:40] LABS: Anion Gap 10 mmol/L (10-20); BUN (Urea Nitrogen) 12 mg/dL (8.4-25.7); Calc. Creatinine Clearance 142 mL/min (70-130); Calcium 8.6 mg/dL (7.8-10.44); Carbon Dioxide 29 mmol/L (23-31); Chloride 100 mmol/L (98-107); Estimated GFR-MDRD Greater than 90; Glucose 115 mg/dL (80-115); Magnesium 1.6 mg/dL (1.6-2.6); Phosphorus 3.3 mg/dL (2.3-4.7); Potassium 3.3 mmol/L (3.5-5.1); Sodium 136 mmol/L (136-145)
[2018-10-15] MEDS ORDERED: Potassium Chloride 20 MEQ TAB PO SCH (07:15)
[2018-10-15] MEDS: Metoprolol Tartrate 25 MG TAB PO SCH ×2 (07:41→20:00)
[2018-10-15] MEDS: glipiZIDE 5 MG TAB PO SCH ×2 (07:41→17:51)
[2018-10-15] MEDS: Saccharomyces boulardii 250 MG CAP PO SCH (07:41)
[2018-10-15] MEDS: NPH, Human Insulin Isophane 300 UNIT/3 ML VIAL SC SCH ×2 (07:42→17:52)
[2018-10-15] MEDS: K-Phos Neutral 250 MG TAB PO SCH (07:42)
[2018-10-15] MEDS: Insulin Regular 300 UNITS/3 ML VIAL SC PRN (11:17)
[2018-10-15] MEDS: traMADol HCl 50 MG TAB PO PRN (11:25)
[2018-10-15] MEDS ORDERED: Iopamidol 370 76% 50 ML VIAL FS ONE (12:02)
[2018-10-15] MEDS ORDERED: ISOVUE-370 76%-LOCM 1 ML ONE (12:02)
--- NOTE | 2018-10-15 12:33 | PDOC.PN ---
- Subjective Encounter Start Date: 10/15/18 (f/u pancreatitis) Encounter Start Time: 12:29 Subjective: Pt c/o worsening RUQ pain - rates it 7-8/10 in severity. States worse -: than yesterday. Has been up and walking, denies nausea/vomiting. Notes -: it is worse with deep breaths - Objective Resuscitation Status - Order Detail: 10/11/18 08:09 Resuscitation Status Routine Resuscitation Status: FULL: Full Resuscitation Vital Signs & Weight: Vital Signs (12 hours) Temp Pulse Resp BP BP BP Pulse Ox 10/15/18 11:37 97.9 F 77 18 152/90 H 92 L 10/15/18 07:41 92 L 10/15/18 07:26 98.4 F 89 19 146/84 H 131/83 145/75 H 92 L 10/15/18 05:00 97.9 F 68 20 136/91 H 143/94 H 93 L Weight Weight 260 lb 2.327 oz I&O: 10/14/18 10/15/18 10/16/18 06:59 06:59 06:59 Intake Total 2600 1810 Balance 2600 1810 Result Diagrams: 10/15/18 05:50 10/15/18 05:50 Additional Labs: Accuchecks 10/15/18 10/15/18 10/14/18 11:19 05:30 19:50 POC Glucose 160 H 109 178 H 10/14/18 16:15 POC Glucose 190 H Phys Exam - Physical Examination Constitutional: NAD Respiratory: no wheezing, no rhonchi faint bibasilar rales Cardiovascular: RRR, no significant murmur Gastrointestinal: positive bowel sounds Musculoskeletal: no edema, pulses present Neurological: non-focal, moves all 4 limbs Psychiatric: normal affect Dx/Plan (1) Pancreatitis Code(s): K85.90 - ACUTE PANCREATITIS WITHOUT NECROSIS OR INFECTION, UNSP Status: Acute (2) Gallstone pancreatitis Code(s): K85.10 - BILIARY ACUTE PANCREATITIS WITHOUT NECROSIS OR INFECTION Status: Acute (3) Hypokalemia Code(s): E87.6 - HYPOKALEMIA Status: Acute (4) Diabetes mellitus Code(s): E11.9 - TYPE 2 DIABETES MELLITUS WITHOUT COMPLICATIONS Status: Chronic Qualifiers: Diabetes mellitus type: type 2 (5) Anemia Code(s): D64.9 - ANEMIA, UNSPECIFIED Status: Acute (6) Volume overload Code(s): E87.70 - FLUID OVERLOAD, UNSPECIFIED Status: Acute Qualifiers: Hypervolemia type: other Qualified Code(s): E87.79 - Other fluid overload (7) Hypophosphatemia Code(s): E83.39 - OTHER DISORDERS OF PHOSPHORUS METABOLISM Status: Resolved - Plan * * Gallstone Pancreatitis - * tolerating a diet and now POD 3 with worsening pain - XR and re-engage General Surgery for eval * * volume overload yesterday - improved. Hold on further lasix * continue to replace potassium * ambulation, incentive spirometer * * RN teaching for glucometer and insulin administration. Pt will need to be discharged with insulin provided he can arrange a Primary Care Physician for monitoring. Case management consult to see if glucometer or other supplies are available for pt to take home. * * dvt prophy - lovenox * gi prophy - not indicated * code status full * * hold on discharge pending pain evaluation
--- NOTE | 2018-10-15 13:25 | RAD ---
ABDOMINAL SURVEY WITH UPRIGHT CHEST AND 2 VIEW ABDOMEN: Date: 10/15/18 INDICATION: Abdominal pain post laparoscopy cholecystectomy. FINDINGS: Lungs appear clear. Gas-filled dilated loops of small bowel in the mid abdomen may represent diffuse ileus or small bowel obstruction. There is gas seen throughout a nondistended colon. No evidence of free intraperitoneal air identified. Cholecystectomy clips. IMPRESSION: Gas-filled mildly dilated loops of small bowel may represent diffuse ileus. Follow-up recommended. POS: AMANDA
--- NOTE | 2018-10-15 16:23 | PDOC.GSPN ---
Surgery Progress Note: Subj - Subjective Narrative: Patient states that his right upper quadrant pain is worse today than yesterday. It is a little bit better since getting pain medicine. He is not having any nausea vomiting fevers or chills. Abdominal x-ray showed some dilated loops of small intestine suggestive of ileus. Colon was normal caliber. He is quite tender to palpation in the right upper quadrant, a little bit more than would be expected at this postoperative stage. Given the worsening abdominal pain and suggestion of ileus on x-ray, I ordered a CT to evaluate for possible bile leak or abscess. I also ordered a HIDA scan in the morning, since a low volume bile leak does not always show up on CT. I will let Dr. Pepe know to follow up on this. Surgery Progress Note: Obj - Vital signs Vital signs: Vital Signs - Most Recent Temp Pulse Resp BP Pulse Ox 97.4 F L 77 18 137/73 94 L 10/15/18 15:37 10/15/18 15:37 10/15/18 15:37 10/15/18 15:37 10/15/18 15:37 Surgery Progress Note: Results - Labs Result Diagrams: 10/15/18 05:50 10/15/18 05:50 Lab results: Laboratory Results - last 24 hr 10/15/18 10/15/18 10/15/18 05:30 05:50 05:50 WBC 12.0 H RBC 4.49 L Hgb 13.6 L Hct 42.0 MCV 93.6 MCH 30.3 MCHC 32.4 RDW 11.3 L Plt Count 193 MPV 9.7 Neutrophils % 72.9 Lymphocytes % 18.8 L Monocytes % 5.1 Eosinophils % 3.0 Basophils % 0.1 Neutrophils # 8.8 H Lymphocytes # 2.3 Monocytes # 0.6 H Eosinophils # 0.4 Basophils # 0.0 Sodium 136 Potassium 3.3 L Chloride 100 Carbon Dioxide 29 Anion Gap 10 BUN 12 Creatinine 0.83 Estimated GFR (MDRD) Greater than 90 Glucose 115 POC Glucose 109 Calcium 8.6 Phosphorus 3.3 Magnesium 1.6 10/15/18 10/15/18 11:19 15:38 WBC RBC Hgb Hct MCV MCH MCHC RDW Plt Count MPV Neutrophils % Lymphocytes % Monocytes % Eosinophils % Basophils % Neutrophils # Lymphocytes # Monocytes # Eosinophils # Basophils # Sodium Potassium Chloride Carbon Dioxide Anion Gap BUN Creatinine Estimated GFR (MDRD) Glucose POC Glucose 160 H 174 H Calcium Phosphorus Magnesium
[2018-10-15 16:58] LABS: ALT (SGPT) 27 U/L (8-55); AST (SGOT) 16 U/L (5-34); Albumin 2.9 g/dL (3.4-4.8); Alkaline Phosphatase 103 U/L (40-150); Anion Gap 12 mmol/L (10-20); BUN (Urea Nitrogen) 12 mg/dL (8.4-25.7); Bilirubin, Total 0.5 mg/dL (0.2-1.2); Calc. Creatinine Clearance 149 mL/min (70-130); Calcium 8.5 mg/dL (7.8-10.44); Carbon Dioxide 26 mmol/L (23-31); Chloride 98 mmol/L (98-107); Estimated GFR-MDRD Greater than 90; Globulin 3.4 g/dL (2.4-3.5); Glucose 155 mg/dL (80-115); Lipase 64 U/L (8-78); Potassium 3.6 mmol/L (3.5-5.1); Protein, Total 6.3 g/dL (5.8-8.1); Sodium 132 mmol/L (136-145)
--- NOTE | 2018-10-15 18:18 | CT ---
CT ABDOMEN AND PELVIS WITH IV CONTRAST: INDICATIONS: Concern for postop ileus. COMPARISON: Acute abdominal series, dated 10/15/2018. FINDINGS: There is subsegmental volume loss involving both lower lobes, right greater than left. There is fluid and gas seen within the gallbladder fossa, consistent with the patient's recent postop state of a cholecystectomy. A small amount of fluid is seen within the Zelaya's pouch. There is inflammatory stranding surrounding the body and head of the pancreas, suspicious for changes of pancr eatitis. No drainable fluid collection is grossly evident. The adrenal glands and left kidney are normal appearing. There is a 4.4 cm right renal cyst seen wit hin the right mid kidney. There is a nonobstructing calculus involving the inferior pole of the righ t kidney, measuring 7 mm. The colon and small bowel are of normal caliber. There is a normal appendix in the right lower quadrant. The bladder is partially decompressed. There are scattered degenerative and osteoarthritic changes. IMPRESSION: 1. Postoperative changes of a recent cholecystectomy with fluid and gas seen within the gallbladder f matty. Only a tiny amount of free air is evident within the upper abdomen, again likely postop. 2. Slightly hyperdense fluid in the Zelaya's pouch, likely related to a mild amount of residual he morrhage within the right upper quadrant. 3. Inflammatory stranding around the pancreatic body and head, suspicious for pancreatitis. No drai nable fluid collection demonstrated. 4. Bibasilar atelectasis. 5. Right renal cyst. 6. The bowel appears of normal caliber. The postoperative ileus appears to have intervally resolved . POS: FRIEDA
[2018-10-15] MEDS: Enoxaparin Sodium 40 MG/0.4 ML SYRINGE SC SCH (20:01)
[2018-10-16] MEDS: Acetaminophen 325 MG TAB PO SCH ×2 (05:16→11:23)
[2018-10-16 06:22] LABS: #Eosinphils 0.3 thou/uL (0.0-0.7); #Lymphocytes 2.2 thou/uL (1.20-3.40); #Monocytes 0.7 thou/uL (0.11-0.59); #Neutrophils 6.8 thou/uL (1.40-6.50); %Basophils 0.3 % (0.0-1.0); %Eosinophils 2.7 % (0.0-10.0); %Lymphocytes 21.8 % (21.0-51.0); %Monocytes 6.8 % (0.0-10.0); %Neutrophils 68.5 % (42.0-75.0); Hemoglobin 12.9 g/dL (14.0-18.0); Mean Corpuscular HGB CONC 37.3 g/dL (32.0-36.0); Mean Corpuscular Hemoglobin 34.9 pg (27.0-31.0); Mean Corpuscular Volume 93.6 fL (78.0-98.0); Platelet Count 199 thou/uL (130-400); RBC Distribution Width 11.8 % (11.5-14.5); Red Blood Cell (RBC) Count 3.69 mill/uL (4.70-6.10)
[2018-10-16 06:30] LABS: Anion Gap 12 mmol/L (10-20); BUN (Urea Nitrogen) 12 mg/dL (8.4-25.7); Calc. Creatinine Clearance 133 mL/min (70-130); Calcium 8.5 mg/dL (7.8-10.44); Carbon Dioxide 29 mmol/L (23-31); Chloride 97 mmol/L (98-107); Estimated GFR-MDRD 85; Glucose 172 mg/dL (80-115); Potassium 3.6 mmol/L (3.5-5.1); Sodium 134 mmol/L (136-145)
[2018-10-16] MEDS: glipiZIDE 5 MG TAB PO SCH (09:40)
[2018-10-16 11:19] VITALS: BP 162/92; TEMP 98.1
[2018-10-16] MEDS: Metoprolol Tartrate 25 MG TAB PO SCH (11:19)
[2018-10-16] MEDS: NPH, Human Insulin Isophane 300 UNIT/3 ML VIAL SC SCH (11:20)
[2018-10-16] MEDS: Saccharomyces boulardii 250 MG CAP PO SCH (11:20)
--- NOTE | 2018-10-16 12:46 | PRG ---
DATE OF SERVICE: 10/16/2018 SUBJECTIVE: Mr. Duran is a 68-year-old man, who is postoperative day #4 status post laparoscopic cholecystectomy with normal intraoperative cholangiogram. The patient was seen by my partner yesterday due to worsening abdominal pain. HIDA scan was obtained this morning. Meanwhile, the patient now reports significant improvement with regard to the abdominal pain, which he now rates at 2/10. He is tolerating diet and having bowel movement. He is passing flatus routinely. OBJECTIVE: VITAL SIGNS: This morning include blood pressure 169/84, pulse is 78, respiratory rate is 18, temperature 98.8 degrees Fahrenheit, and oxygen saturation 92% on room air. HEENT: Reveals normocephalic and atraumatic. He has no scleral icterus present. HEART: Reveals regular rate and rhythm. No murmurs or gallops auscultated. LUNGS: Clear to auscultation bilaterally. Breathing, regular and unlabored. ABDOMEN: Soft and nondistended. He has good bowel sounds in all 4 quadrants. All incisions remain intact, clean, and dry. He has no peritoneal signs on examination. NEUROLOGIC: Reveals no focal deficits present. LABORATORY FINDINGS: Today reveals CBC with 10,000 white blood cells and hemoglobin and hematocrit 12.9 and 34.5 respectively. Platelet count is 199,000. Metabolic profile; sodium 134, potassium 3.6, chloride is 97, bicarb 29, BUN 12, creatinine 0.89, and glucose 172. Of note, it is a normal LFTs yesterday as well as a normal serum lipase. I have reviewed the HIDA scan, which was obtained today, which on 2-hour delay was suspicious for bile leak, which is not supported by current clinical or laboratory examinations. With resolving abdominal pain, no fever or evidence of systemic inflammatory response, acceptable 2/10 abdominal pain, and tolerance to oral intake with bowel movements, I do not think that there is any indication for ERCP for this patient. Therefore, from surgical standpoint, this patient may be discharged home. He is to follow up with me in the clinic on 10/26/2018. The above findings and recommendation have been discussed with the patient through a rehabilitation consultant. The patient indicated understanding of information given. I have answered his questions. The patient has expressed gratitude for the care rendered to him during this hospitalization and surgery. Job ID: [id number] [facility]
--- NOTE | 2018-10-16 14:24 | NM ---
HEPATOBILIARY SCAN: HISTORY: Status post cholecystectomy 3 days, increasing right upper quadrant pain and concern for a bile leak. RADIOPHARMACEUTICAL: 5.2 mCi Technetium 99m-mebrofenin injected intravenously. FINDINGS: There is good tracer extraction by the liver with prompt excretion into the biliary tract and small b owel loops. Delayed image demonstrates tracer collection inferior to the right lobe of the liver. IMPRESSION: Findings suspicious for bile leak. Discussed over the telephone with Dr. Pepe at 11:31 a.m. CODE CR POS: OFF
--- NOTE | 2018-10-17 01:28 | DIS ---
DATE OF ADMISSION: 10/11/2018 DATE OF DISCHARGE: 10/16/2018 CONSULTANTS: 1. Gastroenterology, Dr. Jimenez. 2. General Surgery, Dr. Pepe. MEDICATIONS: Reconciled at discharge and are all are new: 1. Metoprolol tartrate 25 mg one-half tablet p.o. b.i.d. 2. NPH insulin 15 units b.i.d. a.c. 3. Florastor 250 mg daily. 4. Senokot-S 2 tablets twice a day as needed for constipation. 5. Glipizide 5 mg p.o. b.i.d. a.c. 6. Tramadol 50 mg one or two tablets every 6 hours as needed for pain. Prescriptions for glipizide, glucometer, metoprolol, NPH, needles for the insulin provided by [facility] for 1 month. Further refills will need to be obtained through Primary Care Physician. Prescription for tramadol provided by Dr. Pepe for a total of 30 tablets. FINAL DIAGNOSES: 1. Acute pancreatitis secondary to gallstones. 2. Status post laparoscopic cholecystectomy. 3. New onset diabetes. 4. Anemia, mild. 5. Hyponatremia, mild. 6. Right renal cyst. HISTORY OF PRESENT ILLNESS: Mr. Duran is a 68-year-old male who presented to the emergency room with sudden onset of epigastric discomfort, rated as 8/10 in severity. He was found to have a lipase of 3200, and slightly elevated AST and he was transferred to this facility for further evaluation. HOSPITAL COURSE: The patient was treated for the pancreatitis with IV fluids and n.p.o. status. He underwent a laparoscopy cholecystectomy with intraoperative cholangiogram on 10/12, that was unremarkable. He has tolerated this well. He did have an increase in pain on 10/15, and x-ray showed an ileus. Since that time, he has been re-evaluated by General Surgery, underwent a nuclear medicine scan read by Dr. Pepe as a possible biliary leak, however, no symptoms of this. Because the patient's pain is improved, Dr. Pepe has cleared him for discharge for home. He does not think that there is any indication for ERCP. For new diagnosis of diabetes, the patient was started on both glipizide and NPH insulin, and his blood sugars have been controlled in the 150 to 180s range. He will continue this as an outpatient. He does not currently have a primary care provider and is encouraged to obtain one as soon as possible for management of this as well as some elevated blood pressures. His hemoglobin A1c was 13, and the patient has not been to the doctor for years. We discussed the importance of this. In addition, he will need management of elevated triglycerides. The patient did have signs of volume overload on 10/14, and received one dose of Lasix with good response. In addition, his potassium and phosphate have been replaced. The patient is tolerating a diet, ambulating without difficulty, and meets criteria for discharge to home. PHYSICAL EXAMINATION: VITAL SIGNS: On day of discharge, blood pressure 162/92, temp 98.1, pulse 74, respirations 18, sats 93% on room air. GENERAL: Awake, alert, responsive, in no apparent distress. Able to speak in regular sentences with the use of a extension agent. LUNGS: Clear to auscultation bilateral. No audible wheezing, rhonchi, or rales. HEART: Normal S1 and S2. Regular rate and rhythm. No significant murmur. ABDOMEN: Soft with present bowel sounds. EXTREMITIES: No edema. [place] FINDINGS AND TEST RESULTS: Renal panel today; 134, 3.6, 97, 29, 12, 0.89, 172 with a calcium of 8.5. AST 16, ALT 27, alkaline phosphatase 103, total protein 6.3, albumin 2.9. Lipase was 101 on 10/14. Lipase 630 on 10/12, amylase was 596. On 10/12, T bilirubin 1.3, AST 65, ALT 94, alkaline phosphatase 135, total protein 6.1, albumin 3.1. Hemoglobin A1c 13 with a presenting glucose of 388. Abdomen and pelvis CT performed on 10/15, shows postoperative changes of recent cholecystectomy with fluid and gas in the gallbladder fossa, slightly hyperdense fluid in Morison's pouch, likely residual hemorrhage within the right upper quadrant, inflammatory stranding around the pancreatic body and head suspicious for pancreatitis, bibasilar atelectasis, right renal cyst, bowel appears normal and postoperative ileus appears to have resolved. Acute abdominal series on 10/15, gas-filled mildly dilated loops of small bowel may represent diffuse ileus with followup recommended. Gallbladder surgical specimen shows acute on chronic cholecystitis. Abdominal ultrasound on 10/02, shows sonographic findings of cholecystitis, common duct is normal in size. Followup is recommended as soon as possible with the primary care physician to monitor blood sugars, address elevated triglycerides, and manage blood pressure. Follow up with Dr. Pepe on 10/26, to call the office for a followup appointment. ACTIVITY: As tolerated. Monitor blood sugars at least 3 times per day, more if feeling abnormal or any concerns. DIET: Heart healthy, carbohydrate consistent. The patient has received education on this. CODE STATUS: Full. DISCHARGE DISPOSITION: Home. Reviewed with the patient through the hospital extension agent system the return for care precautions, the monitoring of blood sugars, the administration of insulin, the recommended diet, and to seek care precautions. He demonstrates understanding. TIME SPENT: Total time coordinating discharge is 45 minutes. Job ID: [id number] [id number]
== END 2018-10-16 15:32 | disposition home or self-care (01) | DRG 417 ==
LOC: ERS 04:18 → ERHOLD 06:25 → T4-B 13:23
PROVIDERS: ADMIT Family Medicine; ATTEND Family Medicine
PROC: 0FT44ZZ Resection of Gallbladder, Percutaneous Endoscopic Approach (ICD-10-PCS; principal; 2018-10-12)
PROC: BF10YZZ Fluoroscopy of Bile Ducts using Other Contrast (ICD-10-PCS; 2018-10-12)
DX: K80.00 Calculus of gallbladder with acute cholecystitis without obstruction (principal); K85.10 Biliary acute pancreatitis without necrosis or infection; E87.1 Hypo-osmolality and hyponatremia; E11.22 Type 2 diabetes mellitus with diabetic chronic kidney disease; E66.01 Morbid (severe) obesity due to excess calories; N18.2 Chronic kidney disease, stage 2 (mild); E11.65 Type 2 diabetes mellitus with hyperglycemia; M19.90 Unspecified osteoarthritis, unspecified site; E83.42 Hypomagnesemia; E87.70 Fluid overload, unspecified; E87.6 Hypokalemia; D64.9 Anemia, unspecified; N28.1 Cyst of kidney, acquired; Z88.8 Allergy status to other drugs, medicaments and biological substances; Z68.39 Body mass index [BMI] 39.0-39.9, adult
CPT/HCPCS: 36415; 36416; 47532; 74022; 74177; 76705; 78226; 80048; 80053; 80076; 80307; 82150; 83036; 83690; 83735; 84100; 84478; 85025; 87040; 88304; 93005; 94760; 96361; 96374; 96375; A9537; C9113; J1610; J1650; J1815; J1940; J2270; J2405; J2543; J2704; J2765; J3010; J3475; J3490; J7050; Q9966; Q9967; S0028

== ENCOUNTER 2022-11-09 17:58 | Inpatient (IN) | payer OTHER, MEDICAID ==
[2022-11-09 20:40] VITALS: BMI 36.0
[2022-11-09] MEDS ORDERED: Ondansetron PF 4 MG/2 ML Vial IVP PRN (22:22)
[2022-11-09] MEDS ORDERED: Ondansetron ODT 4 MG TAB PO PRN (22:22)
[2022-11-09] MEDS: Benzonatate 100 MG CAP PO PRN (22:48)
[2022-11-09] MEDS ORDERED: Dextrose 50% Abboject 50 ML SYRINGE SLOW IVP PRN (23:14)
[2022-11-09] MEDS ORDERED: Glucagon 1 MG/ML KIT IM PRN (23:14)
[2022-11-09] MEDS ORDERED: Dextrose 5% in Water 1,000 ML IV PRN (23:14)
[2022-11-09] MEDS ORDERED: Ipratropium/Albuterol 3 ML NEB NEB PRN (23:18)
[2022-11-09] MEDS ORDERED: Sodium Chloride 0.9% 1,000 ML IV SCH (23:30)
[2022-11-10] MEDS: HumaLOG 300 UNITS/3 ML VIAL SC PRN ×2 (00:42→06:34)
[2022-11-10] MEDS: Acetaminophen 325 MG TAB PO PRN ×3 (00:45→19:37)
[2022-11-10] MEDS: Benzonatate 100 MG CAP PO PRN ×2 (04:25→19:39)
[2022-11-10 09:27] LABS: Hematocrit 38.2 % (42.0-52.0); Hemoglobin 12.9 g/dL (14.0-18.0); Mean Corpuscular HGB CONC 33.8 g/dL (32.0-36.0); Mean Corpuscular Hemoglobin 30.9 pg (27.0-31.0); Mean Corpuscular Volume 91.4 fl (78.0-98.0); Mean Platelet Volume 11.5 fL (7.4-10.4); Platelet Count 128 10x3/uL (130-400); RBC Distribution Width 12.6 % (11.5-14.5); Red Blood Cell (RBC) Count 4.18 mill/uL (4.70-6.10); White Blood Cell (WBC) Count 20.2 10x3/uL (4.8-10.8)
[2022-11-10 09:34] LABS: Delete Auto Diff?? YES; Manual Diff?? YES
[2022-11-10 09:36] LABS: Hemoglobin A1c 7.3 % (4.0-6.0)
[2022-11-10 09:52] LABS: Anion Gap 11 mmol/L (10-20); BUN (Urea Nitrogen) 25 mg/dL (8.4-25.7); Calc. Creatinine Clearance 79 mL/min (70-130); Calcium 8.2 mg/dL (7.8-10.44); Carbon Dioxide 20 mmol/L (23-31); Chloride 109 mmol/L (98-107); Estimated GFR 59; Glucose 188 mg/dL (83-110); Potassium 3.5 mmol/L (3.5-5.1); Sodium 136 mmol/L (136-145)
[2022-11-10 10:36] LABS: Band 14 % (5-11); CellaVision Operator ID LAB.GE; Lymphocytes 6 % (21-51); Monocytes 6 % (0-10); Neutrophil 71 % (42-75); Platelet Adequacy Comment Platelets Decreased; Polychromasia SLIGHT = 2-3 cells HPF (0-2); Reactive Lymphocytes 3 % (0-10); Total Cell Count 101
[2022-11-10] MEDS: Azithromycin 500 MG in Sodium Chloride 0.9% 250 ML 250 ML IVPB SCH (16:18)
[2022-11-10] MEDS: cefTRIAXone\\ROCEPHIN 1 GM in Sodium Chloride 0.9% 100 ML IVPB SCH (18:58)
[2022-11-10] MEDS ORDERED: guaiFENesin/Codeine 200 mg/20 mg 10 ml Cup PO SCH (22:15)
[2022-11-11 06:26] LABS: #Monocytes 0.7 thou/uL (0.11-0.59); #Neutrophils 13.5 thou/uL (1.40-6.50); %Basophils 0.3 % (0.0-1.0); %Eosinophils 0.2 % (0.0-10.0); %Lymphocytes 7.3 % (21.0-51.0); %Monocytes 4.6 % (0.0-10.0); Hematocrit 38.1 % (42.0-52.0); Hemoglobin 12.7 g/dL (14.0-18.0); Mean Corpuscular HGB CONC 33.3 g/dL (32.0-36.0); Mean Corpuscular Hemoglobin 31.1 pg (27.0-31.0); Mean Corpuscular Volume 93.2 fl (78.0-98.0); Mean Platelet Volume 12.2 fL (7.4-10.4); Platelet Count 121 10x3/uL (130-400); RBC Distribution Width 12.7 % (11.5-14.5); Red Blood Cell (RBC) Count 4.09 mill/uL (4.70-6.10); White Blood Cell (WBC) Count 15.6 10x3/uL (4.8-10.8)
[2022-11-11 06:46] LABS: Anion Gap 13 mmol/L (10-20); BUN (Urea Nitrogen) 21 mg/dL (8.4-25.7); Calc. Creatinine Clearance 108 mL/min (70-130); Calcium 8.1 mg/dL (7.8-10.44); Carbon Dioxide 20 mmol/L (23-31); Chloride 108 mmol/L (98-107); Estimated GFR 86; Glucose 153 mg/dL (83-110); Potassium 3.5 mmol/L (3.5-5.1); Sodium 137 mmol/L (136-145)
[2022-11-11] MEDS ORDERED: Lisinopril 10 MG TAB PO SCH (09:00)
[2022-11-11] MEDS: Atorvastatin Calcium 40 MG TAB PO SCH (09:09)
[2022-11-11] MEDS: cefTRIAXone\\ROCEPHIN 1 GM in Sodium Chloride 0.9% 100 ML IVPB SCH (16:29)
[2022-11-11] MEDS: Azithromycin 500 MG in Sodium Chloride 0.9% 250 ML 250 ML IVPB SCH (17:09)
[2022-11-11] MEDS ORDERED: Milk Of Magnesia 30 ML UDCUP PO PRN (17:41)
[2022-11-11] MEDS: Benzonatate 100 MG CAP PO PRN (21:31)
[2022-11-11] MEDS: Acetaminophen 325 MG TAB PO PRN (21:31)
[2022-11-11] MEDS: HumaLOG 300 UNITS/3 ML VIAL SC PRN (21:32)
[2022-11-12] MEDS: HumaLOG 300 UNITS/3 ML VIAL SC PRN ×2 (05:39→12:11)
[2022-11-12] MEDS: Benzonatate 100 MG CAP PO PRN ×2 (05:39→08:36)
[2022-11-12 06:40] LABS: #Eosinphils 0.1 thou/uL (0.0-0.7); #Monocytes 0.5 thou/uL (0.11-0.59); #Neutrophils 8.3 thou/uL (1.40-6.50); %Basophils 0.2 % (0.0-1.0); %Eosinophils 1.1 % (0.0-10.0); %Lymphocytes 11.3 % (21.0-51.0); %Neutrophils 81.8 % (42.0-75.0); Hematocrit 40.4 % (42.0-52.0); Hemoglobin 13.5 g/dL (14.0-18.0); Mean Corpuscular HGB CONC 33.4 g/dL (32.0-36.0); Mean Corpuscular Hemoglobin 30.7 pg (27.0-31.0); Mean Corpuscular Volume 91.8 fl (78.0-98.0); Mean Platelet Volume 12.3 fL (7.4-10.4); Platelet Count 140 10x3/uL (130-400); RBC Distribution Width 12.4 % (11.5-14.5); White Blood Cell (WBC) Count 10.1 10x3/uL (4.8-10.8)
[2022-11-12 07:04] LABS: Anion Gap 12 mmol/L (10-20); BUN (Urea Nitrogen) 14 mg/dL (8.4-25.7); Calc. Creatinine Clearance 105 mL/min (70-130); Calcium 8.5 mg/dL (7.8-10.44); Carbon Dioxide 24 mmol/L (23-31); Chloride 104 mmol/L (98-107); Estimated GFR 83; Glucose 198 mg/dL (83-110); Potassium 3.3 mmol/L (3.5-5.1); Sodium 137 mmol/L (136-145)
[2022-11-12] MEDS: Acetaminophen 325 MG TAB PO PRN (08:35)
[2022-11-12] MEDS: Atorvastatin Calcium 40 MG TAB PO SCH (08:36)
[2022-11-12] MEDS ORDERED: LevoFLOXacin 750 MG TAB PO SCH (12:45)
[2022-11-12] MEDS: metFORMIN 500 MG TAB PO SCH (20:29)
[2022-11-13] MEDS ORDERED: LevoFLOXacin 750 MG TAB PO SCH (06:00)
[2022-11-13 08:26] LABS: #Eosinphils 0.1 thou/uL (0.0-0.7); #Monocytes 0.6 thou/uL (0.11-0.59); #Neutrophils 4.5 thou/uL (1.40-6.50); %Basophils 0.2 % (0.0-1.0); %Eosinophils 1.2 % (0.0-10.0); %Lymphocytes 19.6 % (21.0-51.0); %Monocytes 8.5 % (0.0-10.0); Hematocrit 38.9 % (42.0-52.0); Hemoglobin 13.2 g/dL (14.0-18.0); Mean Corpuscular HGB CONC 33.9 g/dL (32.0-36.0); Mean Corpuscular Hemoglobin 30.6 pg (27.0-31.0); Mean Corpuscular Volume 90.3 fl (78.0-98.0); Mean Platelet Volume 11.7 fL (7.4-10.4); Platelet Count 174 10x3/uL (130-400); RBC Distribution Width 12.2 % (11.5-14.5); Red Blood Cell (RBC) Count 4.31 mill/uL (4.70-6.10); White Blood Cell (WBC) Count 6.5 10x3/uL (4.8-10.8)
[2022-11-13 08:48] LABS: Anion Gap 13 mmol/L (10-20); BUN (Urea Nitrogen) 14 mg/dL (8.4-25.7); Calc. Creatinine Clearance 111 mL/min (70-130); Calcium 8.9 mg/dL (7.8-10.44); Carbon Dioxide 23 mmol/L (23-31); Chloride 106 mmol/L (98-107); Estimated GFR 90; Glucose 159 mg/dL (83-110); Potassium 3.5 mmol/L (3.5-5.1); Sodium 138 mmol/L (136-145)
[2022-11-13] MEDS: Atorvastatin Calcium 40 MG TAB PO SCH (08:52)
[2022-11-13] MEDS: metFORMIN 500 MG TAB PO SCH (08:52)
[2022-11-13 11:15] VITALS: BP 162/84; TEMP 98.6
== END 2022-11-13 12:01 | disposition home or self-care (01) | DRG 871 ==
LOC: T4-B 17:58
PROVIDERS: ADMIT Internal Medicine; ATTEND Family Medicine
DX: A41.51 Sepsis due to Escherichia coli [E. coli] (principal); J18.9 Pneumonia, unspecified organism; J96.01 Acute respiratory failure with hypoxia; N39.0 Urinary tract infection, site not specified; M19.90 Unspecified osteoarthritis, unspecified site; E11.22 Type 2 diabetes mellitus with diabetic chronic kidney disease; N18.2 Chronic kidney disease, stage 2 (mild); I12.9 Hypertensive chronic kidney disease with stage 1 through stage 4 chronic kidney disease, or unspecified chronic kidney disease; Z88.8 Allergy status to other drugs, medicaments and biological substances; Z79.84 Long term (current) use of oral hypoglycemic drugs; Z79.899 Other long term (current) drug therapy; Z90.49 Acquired absence of other specified parts of digestive tract
CPT/HCPCS: 36415; 36416; 71045; 80048; 82570; 83036; 84156; 85025; J0456; J0696; J1650; J1815; J3490; J7050

== ENCOUNTER 2023-01-10 19:00 | Outpatient (CLI) | payer OTHER | END 2023-01-10 23:59 | disposition home or self-care (01) | LOC: SLEEPLAB 19:00 | PROVIDERS: ATTEND Physician Assistant | DX: G47.33 Obstructive sleep apnea (adult) (pediatric) (principal); E11.9 Type 2 diabetes mellitus without complications; I10 Essential (primary) hypertension; E66.9 Obesity, unspecified; Z68.34 Body mass index [BMI] 34.0-34.9, adult | CPT/HCPCS: 95810 ==